=== PATIENT | female | born 1940 | race Caucasian/White ===

== ENCOUNTER → 2021-06-18 13:19 | Outpatient (BNVA) | payer MEDICARE, BC, SELFPAY | PROVIDERS: Referring Provider Student in an Organized Health Care Education/Training Program; Visit Provider Specialist | DX: R26.89 Other abnormalities of gait and mobility (principal); G62.9 Polyneuropathy, unspecified; F41.8 Other specified anxiety disorders | CPT/HCPCS: 99204 ==

== ENCOUNTER 2021-07-16 13:37 | Outpatient (CLI) | payer MEDICARE, BC, SELFPAY ==
--- NOTE | 2021-07-16 14:30 | MR_ITS ---
WS: [id number] MRI HEAD WITHOUT CONTRAST TECHNIQUE: Sagittal T1, T2 axial, T2 axial FLAIR, axial and coronal T1 images, axial susceptibility w eighted imaging, axial diffusion weighted images, and coronal T2 images were obtained. CLINICAL INFORMATION: R26.89 - Other abnormalities of gait and mobility COMPARISON: None. FINDINGS: No evidence of restricted diffusion to suggest acute ischemia. Ventricular system and basal cisterns are patent. Mild small vessel changes with moderate parenchymal volume loss. Normal posterior fossa. Normal vascular flow voids at the skull base. No extra-axial fluid collections. No evidence of mass o r mass effect. Mucosal thickening in the RIGHT maxillary sinus. Paranasal sinuses and mastoid air cells are well aer ated. 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 No hemosiderin on susceptibly weighted images. Normal optic chiasm and pituitary infundibulum. Modera te symmetric atrophy temporal lobes and hippocampal formations. MR/MR head wo con* [id number] IMPRESSION: 1. No evidence of restricted diffusion to suggest acute ischemia. 2. Mild small vessel changes with moderate parenchymal volume loss. 3. 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 4. Normal optic chiasm and pituitary infundibulum. 5. Mild mucosal thickening RIGHT maxillary sinus. 6. 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
[2021-07-16 19:46] LABS: Folate Level > 20.0 ng/mL (4.8-37.3); Vitamin B12 > 2000 pg/mL (232-1245)
== END 2021-07-16 13:38 | disposition home or self-care (01) ==
LOC: RAD 13:39
PROVIDERS: PCP Student in an Organized Health Care Education/Training Program; Visit Provider Specialist
DX: R26.89 Other abnormalities of gait and mobility (principal); M25.78 Osteophyte, vertebrae; G31.89 Other specified degenerative diseases of nervous system
CPT/HCPCS: 36415; 70551; 82607; 82746

== ENCOUNTER → 2021-08-08 12:48 | Outpatient (BNVA) | payer MEDICARE, BC, SELFPAY | PROVIDERS: PCP Student in an Organized Health Care Education/Training Program; Referring Provider Specialist; Visit Provider Specialist | DX: G62.89 Other specified polyneuropathies (principal) | CPT/HCPCS: 95909 ==

== ENCOUNTER 2021-09-06 13:04 | Outpatient (CLI) | payer MEDICARE, BC, SELFPAY ==
[2021-09-06 14:22] LABS: Erythrocyte Sedimentation Rate 51 mm/hr (0-15)
[2021-09-06 14:25] LABS: C Reactive Protein 27.3 mg/L (0.0-4.9)
[2021-09-06 15:45] LABS: Vitamin B12 > 2000 pg/mL (232-1245)
[2021-09-06 19:08] LABS: Folate Level > 20.0 ng/mL (4.8-37.3)
[2021-09-10 16:28] LABS: Methylmalonic Acid 169 nmol/L (87-318)
== END 2021-09-06 13:05 | disposition home or self-care (01) ==
LOC: LAB 13:07
PROVIDERS: PCP Student in an Organized Health Care Education/Training Program; Visit Provider Specialist
DX: G62.9 Polyneuropathy, unspecified (principal)
CPT/HCPCS: 36415; 82607; 82746; 83921; 85651; 86140; 86334; 86431

== ENCOUNTER 2021-09-25 13:37 | Outpatient (CLI) | payer MEDICARE, BC, SELFPAY ==
[2021-09-26 13:04] LABS: COMPLEMENT COMPONENT C3C 121 mg/dL; COMPLEMENT COMPONENT C4C 33 mg/dL
[2021-09-26 13:22] LABS: THYROID PEROXIDASE ANTIBODIES 1 IU/mL (<9)
[2021-09-26 13:37] LABS: COMPLEMENT, TOTAL (CH50) >60 U/mL (31-60)
[2021-09-26 16:06] LABS: CENTROMERE B ANTIBODY <1.0 NEG AI (<1.0 NEG); JO-1 ANTIBODY <1.0 NEG AI (<1.0 NEG); RNP ANTIBODY <1.0 NEG AI (<1.0 NEG); SCL-70 ANTIBODY <1.0 NEG AI (<1.0 NEG); SJOGREN'S ANTIBODY (SS-A) <1.0 NEG AI (<1.0 NEG); SM ANTIBODY <1.0 NEG AI (<1.0 NEG); SS-B <1.0 NEG AI (<1.0 NEG)
[2021-09-27 12:23] LABS: ANA PATTERN Nuclear, Homogeneous; ANA SCREEN, IFA POSITIVE (NEGATIVE)
[2021-09-28 14:32] LABS: DNA AB (DS) CRITHIDIA,IFA NEGATIVE (NEGATIVE)
== END 2021-09-25 13:38 | disposition home or self-care (01) ==
LOC: LAB 13:41
PROVIDERS: PCP Student in an Organized Health Care Education/Training Program; Visit Provider Specialist
DX: R20.0 Anesthesia of skin (principal); R20.2 Paresthesia of skin
CPT/HCPCS: 86160; 86162; 86235; 86255; 86376

== ENCOUNTER → 2021-10-10 13:03 | Outpatient (BNVA) | payer MEDICARE, BC, SELFPAY | PROVIDERS: PCP Student in an Organized Health Care Education/Training Program; Visit Provider Specialist | DX: G62.9 Polyneuropathy, unspecified (principal); R26.89 Other abnormalities of gait and mobility | CPT/HCPCS: 99214 ==

== ENCOUNTER → 2022-03-26 10:47 | Outpatient (BNVA) | payer MEDICARE, BC, SELFPAY | PROVIDERS: PCP Student in an Organized Health Care Education/Training Program; Visit Provider Specialist | DX: G62.9 Polyneuropathy, unspecified (principal); R26.89 Other abnormalities of gait and mobility | CPT/HCPCS: 99213 ==

== ENCOUNTER → 2023-03-26 12:33 | Outpatient (BNVA) | payer MEDICARE, BC, SELFPAY | PROVIDERS: PCP Student in an Organized Health Care Education/Training Program; Visit Provider Specialist | DX: G62.9 Polyneuropathy, unspecified (principal); M21.40 Flat foot [pes planus] (acquired), unspecified foot | CPT/HCPCS: 99214 ==

== ENCOUNTER → 2024-03-31 14:04 | Outpatient (BNVA) | payer MEDICARE, BC, SELFPAY | PROVIDERS: PCP Student in an Organized Health Care Education/Training Program; Visit Provider Specialist | DX: G62.9 Polyneuropathy, unspecified (principal); M21.40 Flat foot [pes planus] (acquired), unspecified foot; G60.3 Idiopathic progressive neuropathy | CPT/HCPCS: 99212 ==

== ENCOUNTER → 2025-03-23 12:24 | Outpatient (BNVA) | payer MEDICARE, SELFPAY | PROVIDERS: PCP Student in an Organized Health Care Education/Training Program; Visit Provider Specialist | DX: G60.3 Idiopathic progressive neuropathy (principal); M21.40 Flat foot [pes planus] (acquired), unspecified foot | CPT/HCPCS: 99214 ==